=== PATIENT | female | born 2000 | race Two or more races ===

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

== ENCOUNTER 2020-12-15 18:00 | Emergency (ER) | payer MEDICAID ==
[~2020-12-15] VITALS: Ht 172.7 cm; Wt 108.9 kg
[2020-12-15 18:27] LABS: Urine WBC None Seen /hpf (0 - 5)
[2020-12-15 18:56] LABS: Basophils # (auto) 0 10 ^3/uL (0-0.2); Basophils % (auto) 0.3 % (0.0-2.0); Eosinophils # (auto) 0.1 10 ^3/uL (0-0.8); Eosinophils % (auto) 0.6 % (0.0-7.0); Hematocrit 36.8 % (36.0-46.0); Hemoglobin 12.9 g/dL (12.2-16.2); Lymphocytes # (auto) 2.6 10 ^3/uL (0.4-5.4); Lymphocytes % (auto) 26.7 % (10.0-50.0); Mean Corpuscular Hemoglobin 31.7 pg (28.0-32.0); Mean Corpuscular Hgb Conc. 35.2 g/dL (32.0-36.0); Mean Corpuscular Volume 90.3 fL (80.0-100.0); Monocytes # (auto) 0.6 10 ^3/uL (0-1.3); Neutrophils # (auto) 6.6 10 ^3/uL (1.6-8.6); Neutrophils % (auto) 66.4 % (37.0-80.0); Nucleated Red Blood Cells % 0.1 %; Platelet Count (auto) 334 10^3/uL (140-450); Red Blood Cells 4.08 10^6/uL (4.0-5.20); Red Cell Distribution Width 12.8 % (11.8-14.3); White Blood Cell 9.9 10^3/uL (4.4-10.8)
[2020-12-15 19:01] LABS: Urine Bacteria NONE SEEN /hpf (None Seen); Urine Blood 3+ /uL (Negative)
[2020-12-15 19:10] LABS: Albumin 3.8 g/dL (3.4-5.0); Calcium 9.1 mg/dL (8.5-10.1); Potassium 3.6 mmol/L (3.5-5.1)
[2020-12-15 19:14] LABS: BUN/Creatinine Ratio 14.6; Bilirubin, Total 0.6 mg/dL (0.2-1.0); Total Protein 7.4 g/dL (6.4-8.2)
[2020-12-15] MEDS ORDERED: ACETAMINOPHEN 500 MG TAB PO ONE (20:45)
[2020-12-15 23:00] VITALS: BP 120/80
== END 2020-12-15 23:17 | disposition home or self-care (01) ==
LOC: ER 18:02
DX: O20.0 Threatened abortion (principal); O23.41 Unspecified infection of urinary tract in pregnancy, first trimester; Z3A.11 11 weeks gestation of pregnancy
CPT/HCPCS: 36415; 76801; 80053; 81001; 84702; 85025; 87210

== ENCOUNTER 2021-01-06 16:43 | Emergency (ER) | payer SELFPAY ==
[~2021-01-06] VITALS: Ht 167.6 cm; Wt 112.0 kg
[2021-01-06 17:30] LABS: Urine Bacteria FEW /hpf (None Seen); Urine Blood 2+ /uL (Negative); Urine WBC <1 /hpf (0 - 5)
[2021-01-06 18:39] LABS: Basophils # (auto) 0 10 ^3/uL (0-0.2); Basophils % (auto) 0.4 % (0.0-2.0); Eosinophils # (auto) 0.1 10 ^3/uL (0-0.8); Eosinophils % (auto) 0.5 % (0.0-7.0); Hematocrit 36.8 % (36.0-46.0); Hemoglobin 12.8 g/dL (12.2-16.2); Lymphocytes # (auto) 2.5 10 ^3/uL (0.4-5.4); Lymphocytes % (auto) 25.5 % (10.0-50.0); Mean Corpuscular Hemoglobin 31.4 pg (28.0-32.0); Mean Corpuscular Hgb Conc. 34.8 g/dL (32.0-36.0); Mean Corpuscular Volume 90.2 fL (80.0-100.0); Monocytes # (auto) 0.6 10 ^3/uL (0-1.3); Monocytes % (auto) 6.2 % (0.0-12.0); Neutrophils # (auto) 6.6 10 ^3/uL (1.6-8.6); Neutrophils % (auto) 67.4 % (37.0-80.0); Nucleated Red Blood Cells % 0.1 %; Platelet Count (auto) 323 10^3/uL (140-450); Red Blood Cells 4.07 10^6/uL (4.0-5.20); Red Cell Distribution Width 12.7 % (11.8-14.3); White Blood Cell 9.8 10^3/uL (4.4-10.8)
[2021-01-06 18:48] LABS: Albumin 3.2 g/dL (3.4-5.0); Calcium 8.7 mg/dL (8.5-10.1); Potassium 3.7 mmol/L (3.5-5.1)
[2021-01-06 18:52] LABS: BUN/Creatinine Ratio 11.8; Bilirubin, Total 0.4 mg/dL (0.2-1.0)
[2021-01-06 20:05] VITALS: BP 131/51
== END 2021-01-06 20:18 | disposition home or self-care (01) ==
LOC: ER 16:43
DX: O20.0 Threatened abortion (principal); Z3A.15 15 weeks gestation of pregnancy
CPT/HCPCS: 36415; 76801; 80053; 81001; 84702; 85025

== ENCOUNTER 2024-07-21 03:14 | Emergency (ER) | payer MEDICAID ==
[~2024-07-21] VITALS: Ht 165.1 cm; Wt 106.9 kg
[2024-07-21 04:01] LABS: Urine Bacteria None Seen /hpf (None Seen)
[2024-07-21] MEDS ORDERED: cefTRIAXone W LIDOCAINE 1 GM IM IM ONE (04:15)
--- NOTE | 2024-07-21 04:49 | ED.PDOC ---
General HPI Comments 24 year old female presents to the ED with a chief complaint of painful urination onset 2 days. Patient states she has been experiencing painful urination with a burning sensation, hematuria, suprapubic pain for the past 2 days. Patient is currently 19 weeks , has appointment with OBGYN today at 10:00. Denies any PMHx as well as fever, chills, nausea, vomiting, diarrhea, constipation, dizziness, chest pain, shortness of breath. No other symptoms or modifying factors present at this time. Chief Complaint: Urinary Time Seen by MD: 03:57 Primary Care Provider: FAJARDO Reviewed notes: Medications, Allergies Allergies: Coded Allergies: NO KNOWN ALLERGIES (Unverified , 02/20/17) Home Meds Active Scripts Cefdinir (Cefdinir) 300 Mg Cap, 1 CAP PO BID for 10 Days, #20 CAP Prov:GLENN MAHONEY MD 07/21/24 Mode of Arrival: Ambulatory Severity: Moderate Timing: Days Duration: Since onset Prehospital treatment: None Symptoms: Dysuria, Frequency, Hematuria History of: UTI Location: Suprapubic Modifying factors: None associated signs and symptoms: Dysuria, Frequency, Hematuria Past Medical History PAST MEDICAL HISTORY: Denies Surgical History: Denies all surgeries [employer] SAL[employer]IN[employer] History: No Pertinent [employer] History Family History Family History: Unobtainable Social History Smoker: Non-Smoker Alcohol: Denies ETOH Use Drugs: Denies Drug Use Lives In: Home Constitutional: denies: chills, diaphoresis, fatigue, fever, malaise, sweats, weakness, others EENTM: denies: blurred vision, double vision, ear bleeding, ear discharge, ear drainage, ear pain, ear ringing, eye pain, eye redness, hearing loss, mouth pain, mouth swelling, nasal discharge, nose bleeding, nose congestion, nose pain, photophobia, tearing, throat pain, throat swelling, voice changes, others Respiratory: denies: cough, hemoptysis, orthopnea, SOB at rest, shortness of breath, SOB with excertion, stridor, wheezing, others Cardiovascular: denies: chest pain, dizzy spells, diaphoresis, Dyspnea on exertion, edema, irregular heart beat, left arm pain, lightheadedness, palpitations, PND, syncope, others Gastrointestinal: denies: abdomen distended, abdominal pain, blood streaked bowels, constipated, diarrhea, dysphagia, difficulty swallowing, hematemesis, melena, nausea, poor appetite, poor fluid intake, rectal bleeding, rectal pain, vomiting, others Genitourinary: reports: burning, dysuria, frequency, hematuria, pain, ; denies: abnormal vagina bleeding, dyspareunia, flank pain, incontinence, vagina discharge, urgency, others Neurological: denies: dizziness, fainting, headache, left sided numbness, left sided weakness, numbness, paresthesia, pre-existing deficit, right sided numbness, right sided weakness, seizure, speech problems, tingling, tremors, weakness, others Musculoskeletal: denies: back pain, gout, joint pain, joint swelling, muscle pain, muscle stiffness, neck pain, others Integumetry: denies: bruises, change in color, change in hair/nails, dryness, laceration, lesions, lumps, rash, wounds, others Allergic/Immunocompromised: denies: Difficulty Healing, Frequent Infections, Hives, Itching, others Hematologic/Lymphatic: denies: anemia, blood clots, easy bleeding, easy bruising, swollen glands, others Endocrine: denies: excessive hunger, excessive sweating, excessive thirst, excessive urination, flushing, intolerance to cold, intolerance to heat, unexplained weight gain, unexplained weight loss, others Psychiatric: denies: anxiety, bipolar disorder, depression, hopeless, panic disorder, schizophrenia, sleepless, suicidal, others All Other Systems: Reviewed and Negative Physical Exam General Appearance: Mild Distress, Normal HEENT: Normal ENT Inspection, Pharynx Normal, TMs Normal Neck: Full Range of Motion, Non-Tender, Normal, Normal Inspection Respiratory: Chest Non-Tender, Lungs Clear, No Accessory Muscle Use, No Respiratory Distress, Normal Breath Sounds Cardiovascular: No Edema, No JVD, No Murmur, No Gallop, Normal Peripheral Pulses, Regular Rate/Rhythm Breast Exam: Deferred Gastrointestinal: No Organomegaly, Non Tender, No Pulsatile Mass, Normal Bowel Sounds, Soft Genitalia: Deferred Pelvic: Deferred Rectal: Deferred Extremities: No calf tenderness, Normal capillary refill, Normal inspection, Normal range of motion, Non-tender, No pedal edema Musculoskeletal : Apperance: Normal Neurologic: Alert, 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 Was a procedure done?: No Differential Diagnosis Kidney stone (Female): Pyelonephritis, Urinary obstruction, Urolithiasis Kidney stone (Male): Pyelonephritis, Urinary tract infection Penile/Scrotal: Urolithiasis, Urinary Retention Urinary Problem (Male): Urethritis, Urinary Retention, Urolithiasis Urinary Problem (Female): Vaginitis, Other X-Ray, Labs, Meds, VS Vital Signs Date Time Temp Pulse Resp B/P (MAP) Pulse Ox O2 Delivery O2 Flow Rate FiO2 07/21/24 04:56 99.1 91 19 111/64 (80) 97 99.1 07/21/24 04:56 91 19 97 Room Air 07/21/24 03:25 98.5 86 16 115/59 (77) 99 Lab Test 07/21/24 03:30 Range/Units Urine Color Colorless Yellow Urine Clarity Turbid H Clear Urine pH 6.0 5.0-9.0 Urine Specific [place] 1.020 1.001-1.035 Urine Protein 2+ H Negative Urine Ketones Negative Negative Urine Blood 3+ H Negative /uL Urine Nitrite Negative Negative Urine Bilirubin Negative Negative Urine Urobilinogen Normal Negative mg/dL Urine Leukocyte Esterase 3+ Negative /uL Urine RBC 1108 0 - 4 /hpf Urine WBC 622 0 - 5 /hpf Urine WBC Clumps Present None Seen /hpf Urine Squamous Epithelial Cells Few <5 /hpf Urine Bacteria None seen None Seen /hpf Urine Glucose Normal Normal mg/dL Current Medications Medications (Trade) Dose Ordered Sig/Vasiliy Route Start Time Stop Time Status Last Admin Ceftriaxone Sodium (Rocephin) 1,000 mg ONCE ONCE IM 07/21/24 04:30 07/21/24 04:31 DC 07/21/24 04:55 Time of 1ST Reevaluation: 04:27 Reevaluation 1ST: Unchanged Time of 2ND Reevaluation: 06:00 Reevaluation 2ND: Improved Patient Education/Counseling: Diagnosis, Treatment, Prognosis Family Education/Counseling: No Family Present Additional Information I reviewed the following notes from patient's past medical encounters: The following tests were ordered, and results were reviewed by me: RUIZ I discussed treatment and results with medical personnel and: patient Departure 1 Departure Time of Disposition: 06:00 Impression: Primary Impression: UTI (urinary tract infection) Additional Impression: 19 weeks gestation of Disposition: HOME / SELF CARE / HOMELESS Condition: Stable e-Prescriptions Cefdinir (Cefdinir) 300 Mg Cap 1 CAP PO BID for 10 Days, #20 CAP Prov: GLENN MAHONEY MD 07/21/24 Discharged With: Self Critical Care Note Critical Care Time?: No Stability Stability form required: No I personally scribed for GLENN MAHONEY MD ([email or web address]) on 07/21/24 at 04:49. Electronically submitted by Dania Martinez ([email or web address]). GLENN MAHONEY MD Jul 21, 2024 04:49
[2024-07-21] MEDS: cefTRIAXone SOD 1,000 MG VL IM ONE (04:55)
[2024-07-21 04:56] VITALS: BP 111/64; PULSE 91; RESP 19; TEMP 99.1; O2SAT 97
[2024-07-21 05:06] LABS: Urine Blood 3+ /uL (Negative); Urine Clarity Turbid (Clear); Urine Color Colorless (Yellow); Urine Protein, UAD 2+ (Negative); Urine Squamous Epithelial Cell FEW /hpf (<5); Urine Urobilinogen Normal (Negative); Urine WBC 622 /hpf (0 - 5); Urine WBC Clumps PRESENT /hpf (None Seen)
[2024-07-21] MEDS ORDERED: CEFD300C2 PO (05:26)
== END 2024-07-21 05:45 | disposition home or self-care (01) ==
LOC: ER 03:14
DX: O23.32 Infections of other parts of urinary tract in pregnancy, second trimester (principal); N39.0 Urinary tract infection, site not specified; Z3A.19 19 weeks gestation of pregnancy
CPT/HCPCS: 81001; 96372; 99283; J0696